=== PATIENT | male | born 1990 | race Caucasian/White ===

== ENCOUNTER 2019-10-28 21:18 | Emergency (ER) | payer SELFPAY ==
[~2019-10-28] VITALS: Ht 188 cm; Wt 65.8 kg
[2019-10-28 21:21] VITALS: Ht 188 cm; Wt 65.8 kg
[2019-10-28 22:21] VITALS: BP 104/49
== END 2019-10-28 22:22 | disposition home or self-care (01) ==
LOC: ED 21:18
DX: S51.812A Laceration without foreign body of left forearm, initial encounter (principal); W26.8XXA Contact with other sharp object(s), not elsewhere classified, initial encounter; Y93.89 Activity, other specified; Y92.89 Other specified places as the place of occurrence of the external cause; Y99.8 Other external cause status
CPT/HCPCS: 90715; J2001